=== PATIENT | male | born 1955 | race Asian ===

== ENCOUNTER 2018-05-25 19:44 | Inpatient (IN) | payer OTHER ==
[~2018-05-25] VITALS: Ht 180.3 cm; Wt 75.7 kg
[2018-05-25] MEDS ORDERED: SODIUM CHLORIDE 0.9% 1,000 ML IV ONE ×2 (20:29→21:54)
[2018-05-25] MEDS ORDERED: ONDANSETRON HCL 4MG/2ML INJ IV STA ×2 (20:29→21:39)
[2018-05-25 20:53] LABS: BASOPHILS % 0.8 % (0.0-2.0); EOSINOPHILS % 1.1 % (0.0-5.0); HEMOGLOBIN. 7.5 g/dL (14.0-18.0); LYMPHOCYTES % 14.3 % (20.0-50.0); MEAN CORPUSCULAR HEMOGLOBIN 27.9 pg (28.0-32.0); MEAN CORPUSCULAR VOLUME 85.5 fL (80.0-94.0); MEAN PLATELET VOLUME 7.4 fl (7.4-10.4); MONOCYTES % 6.9 % (2.0-8.0); NEUTROPHILS % 76.9 % (40.0-76.0); PLATELET 179 x1000/uL (130-400); RED BLOOD CELL COUNT 2.69 mill/uL (4.7-6.1); RED CELL DISTRIBUTION WIDTH 15.2 % (11.6-14.6)
[2018-05-25 20:59] LABS: CHLORIDE 107 mEq/L (98-107)
[2018-05-25 21:03] LABS: ETHANOL BLOOD < 10 mg/dL; INR 1.2; PARTIAL THROMBOPLASTIN TIME 29.7 sec (23.4-31.0); PROTHROMBIN TIME 12.1 sec (9.1-11.1)
[2018-05-25] MEDS ORDERED: PANTOPRAZOLE SODIUM 40 MG/VIAL IV STA (21:39)
[2018-05-25] MEDS ORDERED: PANTOPRAZOLE 80 MG in SODIUM CHLORIDE 0.9% 100 ML IV STA (21:39)
[2018-05-25] MEDS ORDERED: OCTREOTIDE 1,000 MCG in SODIUM CHLORIDE 0.9% 100 ML IV PRN ×2 (21:45→22:15)
[2018-05-25] MEDS ORDERED: OCTREOTIDE ACETATE 50 MCG/ML 1ML IV ONE (21:45)
[2018-05-26] VITALS (86 sets, daily range): BP systolic 76–185; BP diastolic 35–111
[2018-05-26] MEDS ORDERED: PANTOPRAZOLE 80 MG in SODIUM CHLORIDE 0.9% 100 ML IV SCH ×3 (03:45→05:00)
[2018-05-26] MEDS ORDERED: OCTREOTIDE 1,000 MCG in SODIUM CHLORIDE 0.9% 100 ML IV SCH (05:00)
[2018-05-26] MEDS ORDERED: DEXT 5%/0.45% NACL KCL 20MEQ/L 1,000 ML IV SCH (05:00)
[2018-05-26 05:34] LABS: BASOPHILS % 0.3 % (0.0-2.0); EOSINOPHILS % 0.3 % (0.0-5.0); LYMPHOCYTES % 27.4 % (20.0-50.0); MEAN CORPUSCULAR HEMOGLOBIN 27.6 pg (28.0-32.0); MEAN CORPUSCULAR VOLUME 84.5 fL (80.0-94.0); MONOCYTES % 7.5 % (2.0-8.0); NEUTROPHILS % 64.5 % (40.0-76.0); PLATELET 147 x1000/uL (130-400); RED BLOOD CELL COUNT 2.44 mill/uL (4.7-6.1); RED CELL DISTRIBUTION WIDTH 15.2 % (11.6-14.6)
[2018-05-26 06:02] LABS: HEMATOCRIT. 20.6 % (42.0-52.0); HEMOGLOBIN. 6.7 g/dL (14.0-18.0)
[2018-05-26] MEDS: DEXT 5%/0.45% NACL 1000ML 1,000 ML IV SCH (08:00)
[2018-05-26] MEDS ORDERED: ALBUTEROL (0.5%) 2.5MG/0.5ML NEB HHN NR (09:30)
[2018-05-26] MEDS ORDERED: SODIUM CHLORIDE 0.9% 200 ML IV NR (09:39)
[2018-05-26] MEDS ORDERED: ALBUTEROL (0.083%) 2.5MG/3ML NEB HHN NR (09:45)
[2018-05-26] MEDS ORDERED: ONDANSETRON HCL 4MG/2ML INJ IV PRN ×2 (11:45→15:00)
[2018-05-26] MEDS ORDERED: EPINEPHRINE 0.1MG/ML (1:10,000) 10ML SYR ONE (12:57)
[2018-05-26 13:01] LABS: INR 1.2; PARTIAL THROMBOPLASTIN TIME 30.1 sec (23.4-31.0); PROTHROMBIN TIME 11.6 sec (9.1-11.1)
[2018-05-26] MEDS ORDERED: MIDAZOLAM HCL 5 MG/5 ML VIAL ONE (13:11)
[2018-05-26] MEDS ORDERED: FENTANYL CITRATE/PF 50MCG/ML 2ML VIAL ONE (13:11)
[2018-05-26] MEDS ORDERED: DIPHENHYDRAMINE 50MG/ML VIAL ONE (13:11)
[2018-05-26 13:23] LABS: FOLIC ACID (FOLATE) SERUM 7.1 ng/mL (>5.38)
[2018-05-26] MEDS ORDERED: FENTANYL CITRATE/PF 50MCG/ML 2ML VIAL IV PRN (13:52)
[2018-05-26] MEDS ORDERED: MIDAZOLAM HCL 2 MG/2 ML VIAL IV PRN (13:53)
[2018-05-26 14:18] LABS: CLARITY URINE CLEAR (CLEAR); COLOR URINE YELLOW (YELLOW); KETONES URINE TRACE (NEGATIVE); LEUKOCYTE ESTERASE URINE NEGATIVE (NEGATIVE); NITRITE URINE NEGATIVE (NEGATIVE); OCCULT BLOOD URINE NEGATIVE (NEGATIVE); PROTEIN URINE TRACE (NEGATIVE); SPECIFIC GRAVITY URINE 1.018 (1.005-1.030); UROBILINOGEN URINE 0.2 E.U./dL (0.2-1.0)
[2018-05-26 14:29] LABS: CANNABINOID URINE SCREEN NEGATIVE (NEGATIVE); OPIATES URINE SCREEN NEGATIVE (NEGATIVE)
[2018-05-26 14:30] LABS: *AMPHETAMINES SCREEN URINE NEGATIVE (NEGATIVE)
[2018-05-26 14:31] LABS: *BARBITURATES SCREEN URINE NEGATIVE (NEGATIVE); *BENZODIAZEPINES SCREEN URINE NEGATIVE (NEGATIVE); *COCAINE SCREEN URINE NEGATIVE (NEGATIVE); METHADONE URINE SCREEN NEGATIVE (NEGATIVE); PHENCYCLIDINE URINE SCREEN NEGATIVE (NEGATIVE)
[2018-05-26] MEDS ORDERED: SIMETHICONE 40 MG/0.6 ML 30ML ONE (15:17)
[2018-05-26] MEDS ORDERED: SODIUM CHLORIDE 0.9% 10ML VIAL ONE (15:17)
[2018-05-26] MEDS: PANTOPRAZOLE SODIUM 40 MG/VIAL IV SCH ×2 (15:28→17:00)
[2018-05-26 15:40] LABS: HEMATOCRIT 26.4 % (42.0-52.0); HEMOGLOBIN 8.7 g/dL (14.0-18.0)
[2018-05-26] MEDS ORDERED: DEXTROSE 50% WATER 50ML SYRINGE IV PRN (15:45)
[2018-05-26] MEDS ORDERED: INSULIN LISPRO 100 UNITS/ML SUBCUT SCH (15:45)
[2018-05-26] MEDS: BLOOD SUGAR DIAGNOSTIC STRIP TEST SCH (16:57)
[2018-05-26] MEDS ORDERED: METF-414 PO (17:09)
[2018-05-26] MEDS ORDERED: OMEP20TA2 PO (17:09)
[2018-05-26] MEDS ORDERED: ASPI-1159 PO (17:09)
[2018-05-26] MEDS ORDERED: LISI40TA4 PO (17:09)
[2018-05-26] MEDS ORDERED: ATOR40TA70 PO (17:09)
[2018-05-26] MEDS: METOCLOPRAMIDE HCL 10MG/2ML VIAL IV SCH (17:22)
[2018-05-26 21:43] LABS: HEMATOCRIT 23.1 % (42.0-52.0); HEMOGLOBIN 7.8 g/dL (14.0-18.0)
[2018-05-27] VITALS (93 sets, daily range): BP systolic 79–176; BP diastolic 34–99
[2018-05-27] MEDS: BLOOD SUGAR DIAGNOSTIC STRIP TEST SCH ×4 (00:15→18:54)
[2018-05-27] MEDS: DEXT 5%/0.45% NACL 1000ML 1,000 ML IV SCH ×3 (00:17→23:55)
[2018-05-27] MEDS: METOCLOPRAMIDE HCL 10MG/2ML VIAL IV SCH ×5 (00:20→23:59)
[2018-05-27 01:15] LABS: HEMATOCRIT 23.8 % (42.0-52.0)
[2018-05-27] MEDS: INSULIN LISPRO 100 UNITS/ML SUBCUT SCH ×4 (06:00→18:00)
[2018-05-27] MEDS: PANTOPRAZOLE SODIUM 40 MG/VIAL IV SCH ×2 (08:29→17:49)
[2018-05-27 09:17] LABS: BASOPHILS % 0.3 % (0.0-2.0); EOSINOPHILS % 2.2 % (0.0-5.0); HEMATOCRIT. 26.6 % (42.0-52.0); LYMPHOCYTES % 11.5 % (20.0-50.0); MEAN CORPUSCULAR HEMOGLOBIN 28.6 pg (28.0-32.0); MEAN CORPUSCULAR VOLUME 84.4 fL (80.0-94.0); MEAN PLATELET VOLUME 7.4 fl (7.4-10.4); MONOCYTES % 8.2 % (2.0-8.0); NEUTROPHILS % 77.8 % (40.0-76.0); PLATELET 122 x1000/uL (130-400); RED BLOOD CELL COUNT 3.15 mill/uL (4.7-6.1); RED CELL DISTRIBUTION WIDTH 15.2 % (11.6-14.6)
[2018-05-27 09:24] LABS: INR 1.1; PROTHROMBIN TIME 11.3 sec (9.1-11.1)
[2018-05-27] MEDS: SUCRALFATE 1 G/10 ML UDC PO SCH ×3 (11:06→20:49)
[2018-05-27 12:39] LABS: HEMATOCRIT 28.7 % (42.0-52.0); HEMOGLOBIN 9.7 g/dL (14.0-18.0)
[2018-05-27 19:09] LABS: HEMATOCRIT 27.6 % (42.0-52.0); HEMOGLOBIN 9.4 g/dL (14.0-18.0)
[2018-05-28] VITALS (14 sets, daily range): BP systolic 111–164; BP diastolic 48–78
[2018-05-28 05:46] LABS: BASOPHILS % 0.4 % (0.0-2.0); EOSINOPHILS % 6.5 % (0.0-5.0); HEMATOCRIT. 26.1 % (42.0-52.0); HEMOGLOBIN. 8.8 g/dL (14.0-18.0); LYMPHOCYTES % 22.9 % (20.0-50.0); MEAN CORPUSCULAR HEMOGLOBIN 28.5 pg (28.0-32.0); MEAN CORPUSCULAR VOLUME 84.1 fL (80.0-94.0); MEAN PLATELET VOLUME 7.9 fl (7.4-10.4); MONOCYTES % 8.5 % (2.0-8.0); NEUTROPHILS % 61.7 % (40.0-76.0); PLATELET 122 x1000/uL (130-400); RED CELL DISTRIBUTION WIDTH 14.4 % (11.6-14.6)
[2018-05-28 05:49] LABS: CHLORIDE 111 mEq/L (98-107)
[2018-05-28] MEDS: INSULIN LISPRO 100 UNITS/ML SUBCUT SCH ×4 (06:00→18:00)
[2018-05-28] MEDS: BLOOD SUGAR DIAGNOSTIC STRIP TEST SCH ×4 (06:00→18:09)
[2018-05-28] MEDS: SUCRALFATE 1 G/10 ML UDC PO SCH ×4 (07:14→18:10)
[2018-05-28] MEDS: METOCLOPRAMIDE HCL 10MG/2ML VIAL IV SCH ×3 (07:14→18:10)
[2018-05-28] MEDS: PANTOPRAZOLE SODIUM 40 MG/VIAL IV SCH ×2 (10:08→18:10)
[2018-05-28] MEDS ORDERED: LACTULOSE 20G/30ML UDC PO SCH (10:45)
== END 2018-05-28 19:30 | disposition home or self-care (01) | DRG 377 ==
LOC: ER 19:44 → MICUSO 21:47 → EDBEDREQTM 21:49 → EDBEDREQ 21:49 → EDBEDREQSVC 21:49 → ENRESERV 05-26 00:43 → 8WST 05-28 11:57
PROVIDERS: ADMIT Internal Medicine; ATTEND Internal Medicine
PROC: 30233N1 Transfusion of Nonautologous Red Blood Cells into Peripheral Vein, Percutaneous Approach (ICD-10-PCS; 2018-05-25)
PROC: 0DJ08ZZ Inspection of Upper Intestinal Tract, Via Natural or Artificial Opening Endoscopic (ICD-10-PCS; 2018-05-26)
PROC: 3E0G8GC Introduction of Other Therapeutic Substance into Upper GI, Via Natural or Artificial Opening Endoscopic (ICD-10-PCS; principal; 2018-05-26 13:00)
DX: K25.4 Chronic or unspecified gastric ulcer with hemorrhage (principal); N17.0 Acute kidney failure with tubular necrosis; E43 Unspecified severe protein-calorie malnutrition; D62 Acute posthemorrhagic anemia; E11.9 Type 2 diabetes mellitus without complications; E87.5 Hyperkalemia; I10 Essential (primary) hypertension; K76.0 Fatty (change of) liver, not elsewhere classified; I95.9 Hypotension, unspecified; Z68.23 Body mass index [BMI] 23.0-23.9, adult
CPT/HCPCS: 36415; 71045; 76700; 80048; 80305; 82140; 82550; 82607; 82728; 82746; 82962; 83036; 83540; 83550; 83880; 84132; 84484; 85014; 85018; 86850; 86900; 86920; 93005; 93970; 96361; 96374; 96375; 96376; 99152; 99291; A4216; C9113; G0482; J1200; J1815; J2250; J2354; J2405; J2765; J3010; J3490; J7030; J7040; J7050; J7611; P9016; G0500